=== PATIENT | female | born 1965 | race Hispanic/Latino ===

== ENCOUNTER 2020-01-13 13:51 | Emergency (ER) | payer OTHER ==
[~2020-01-13] VITALS: Ht 157.5 cm; Wt 70.3 kg
--- NOTE | 2020-01-13 14:58 | Diagnostic Imaging Report ---
EXAMINATION: CXR 2 VIEW - HOPD INDICATION: Chest pain COMPARISON: None FINDINGS: LINES/TUBES:None LUNGS:The lungs are well-inflated. No focal consolidation or pulmonary edema. PLEURA:No pleural effusion or pneumothorax. MEDIASTINUM:The cardiomediastinal silhouette appears normal in size and shape. BONES/SOFT TISSUES:No acute osseous injury. ABDOMEN:No free air under the diaphragm. IMPRESSION: No focal pneumonia or pulmonary edema. Signed by: Marissa Benjamin MD on 01/13/2020 2:55 PM
[2020-01-13] MEDS ORDERED: DONNATAL/LIDOCAINE/MAALOX 30 ML SUSP PO ONE (15:15)
[2020-01-13] MEDS ORDERED: FAMOTIDINE 20 MG/2 ML VIAL IV STA (15:15)
--- NOTE | 2020-01-13 15:23 | Emergency Department Note ---
History of Present Illnes History of Present Illness Chief Complaint: Chest Pain History of Present Illness This is a 54 year old female with no significant PMH, who presnet with a 2 week history of progressively worsening pain in center of chest that is worse with swallowing, and results in a "sour taste in her throat." Pt states that 2 weeks ago, she ate something and it "felt like it got stuck in her chest, below the mid sternum. She has had a "sharp and tight" feeling in her chest during this time period, that "lasts for a few seconds" and then resolves, without intervention, with no associated SOB, dizziness, diaphoresis, or palpitations. She has had some nausea, without vomiting, and some anorexia. She has not taken any antacids or other medications to try and help alleviate the pains. She denies melena and hematochezia. Pt denies a personal or FH of heart disease. However, patient does not see a PCP for routine check-ups. Historian: Patient Arrival Mode: Car Head Banquet Waitress Required: No Onset (how long ago): week(s) (2) Location: see HPI Quality: see HPI Radiation: back Severity: moderate Onset quality: sudden Duration (how long): week(s) (intermittent x 2 weeks, lasting a "few seconds" when it occurs) Timing of current episode: sporadic Progression: worsening Chronicity: new Relieving factors: none Exacerbating factors: none Associated symptoms: denies other symptoms Treatments prior to arrival: none Past Medical/Family History Physician Review I have reviewed the patient's past medical and family history. Any updates have been documented here. Past Medical History Recent Fever: No Clinical Suspicion of Infectio: No New/Unexplained Change in Ment: No Past Medical History: None Past Surgical History: Tubal Ligation Social History Smoking Cessation: Never Smoker Counseling Performed: No Alcohol Use: None Any Illegal Drug Use: No TB Exposure/Symptoms: No Physically hurt or threatened: No Family History Family history of heart diseas: No Other Last Tetanus: unk Any Pre-Existing Lines (PICC,: No Is patient up to date on immun: No Review of Systems Review of Systems Constitutional: no symptoms EENTM: no symptoms Cardiovascular: as per HPI, chest pain Respiratory: no symptoms Gastrointestinal: nausea Genitourinary: no symptoms Musculoskeletal: no symptoms Neurological: no symptoms Review of other systems All other systems reviewed and negative. Physical Exam Related Data Allergies: Coded Allergies: No Known Allergies (Unverified , 01/13/20) Vital signs reviewed: Yes Physical Exam CONSTITUTIONAL Constitutional: well-developed, well-nourished HENT HENT: normocephalic, atraumatic, oropharynx clear/moist, nose normal HENT L/R: left ext ear normal, right ext ear normal EYES Eyes: PERRL, conjunctivae normal NECK Neck: ROM normal PULMONARY Pulmonary: effort normal, breath sounds normal CARDIOVASCULAR Cardiovascular: regular rhythm, heart sounds normal, capillary refill normal, normal rate GASTROINTESTINAL Abdominal: soft, bowel sounds normal, tender (mild epigastric ttp, with out reboung or guarding) GENITOURINARY Genitourinary: exam deferred SKIN Skin: warm, dry MUSCULOSKELETAL Musculoskeletal: ROM normal NEUROLOGICAL Neurological: alert, oriented x 3, no gross motor or sensory deficits PSYCHOLOGICAL Results Laboratory Lab results reviewed: Yes Laboratory comments CBC - nl CMP - nl Cardiacs - nl except for myoglobin = 116 BNP - nl D-dimer = negative UA - ket = 40 mg/dl, blo - trace, intact Imaging Imaging results reviewed: Yes Imaging Comments CXR - negative Diagnostics Tests Diagnostic test(s) reviewed: Yes Procedures 12 Lead ECG Interpretation Head Banquet Waitress: Interpreted by ED physician Date: Jan 13, 2020 Time: 13:40 Prior MOLD SPRAYER tracings: not available for review Rhythm: sinus tachycardia Rate: tachycardia BPM: 104 QRS axis: normal ST segments normal: Yes T waves normal: Yes Clinical Impression: abnormal ECG ((due to elevated HR)) Critical Care Time Subsequent provider I assumed direction of critical care for this patient from another provider of my specialty. Clinical Decision Tools HEART Score Date Taken: Jan 13, 2020 Time taken: 15:00 HEART Score: HEART Score Response (Comments) Value History Slightly suspicious 0 EKG Normal 0 Age 45 - 65 1 Risk factors no risk factors 0 Troponin < or = to normal limit Total 1 Assessment & Plan Assessment & Plan Final Impression: (1) CHEST PAIN, UNSPECIFIED (2) GASTRO-ESOPHAGEAL REFLUX DISEASE WITH ESOPHAGITIS (3) NAUSEA Assessment & Plan - Pt received a dose of IV Pepcid and a GI cocktail, both of which seemed to significantly decrease her pain. Take the medication Pantoprazole 40 mg daily x 2 weeks, then try to stop the medication to see if the symptoms return. Follow dietary recommendations below. If you have break-through pain and/or "sour taste in your mouth," you may take MAALOX, GAS-X, GAVISCON, or similar medication to try and reduce pain. Follow a BLAND diet, avoiding FRIED, FATTY, FAST and SPICY foods. *Eat small meals, frequently , rather than 1-2 large meals/day. Do NOT eat closer than 3 hours before bedtime. Establish with a Primary Care Physician and follow-up with a BARREL DRAINER, for a screening colonoscopy and endoscopy (to check out esophagus and stomach) - Pt referred to Dr. Montesinos and Dr. Jose Ramirez Return to the ER, if you develop worsening symptoms of chest pain, nausea, blood in stool, or vomiting, possibly blood. Depart Disposition: HOME, SELF-group home Meds Active Scripts Pantoprazole Sodium* (PROTONIX) 40 Mg Tablet.dr, 40 MG PO DAILY for acid reflux, #30 TAB 0 Refills Prov:JEMMA VERDUZCO MD 01/13/20 Medications in the ED Famotidine 20 mg NOW STAT IV ; Start 01/13/20 at 15:15; Stop 01/13/20 at 15:16; Status UNV Belladonna Alkaloids/ Phenobarbital 30 ml ONCE ONCE PO ; Start 01/13/20 at 15:15; Stop 01/13/20 at 15:16; Status UNV JEMMA VERDUZCO MD Jan 13, 2020 15:23
[2020-01-13] MEDS ORDERED: PANTOPRAZOLE SO40 MG PO (15:25)
[2020-01-13] MEDS ORDERED: MAGNESIUM/ALUMINUM/SIMETHICONE 30 ML UDC ONE (15:33)
[2020-01-13] MEDS ORDERED: BELLADONNA ALK/PHENOBARBITAL 5 ML UDC ONE (15:33)
[2020-01-13] MEDS ORDERED: LIDOCAINE VISC 2% SOLN 15 ML UDC ONE (15:33)
[2020-01-13 17:42] VITALS: BP 138/77
== END 2020-01-13 16:06 | disposition home or self-care (01) ==
LOC: FSED 13:51
DX: R07.9 Chest pain, unspecified (principal); R11.0 Nausea; K21.0 Gastro-esophageal reflux disease with esophagitis
CPT/HCPCS: 71046; 80053; 82553; 83880; 84484; 85025; 85379; 93005; 96374; 99284

== ENCOUNTER 2020-03-21 10:44 | Emergency (ER) | payer OTHER ==
[~2020-03-21] VITALS: Ht 157.5 cm; Wt 70.3 kg
[~2020-03-21 10:44] MED LIST: PANTOPRAZOLE SO40 MG PO
--- NOTE | 2020-03-21 10:50 | NUR ---
called pt for triage, no answer
--- NOTE | 2020-03-21 11:22 | NUR ---
pt called again to triage and refused wanting to stay on phone, pacing.
--- NOTE | 2020-03-21 11:29 | NUR ---
called again and now in bathroom
--- OUTSIDE RECORDS SUMMARY | 2020-03-21 11:38 | XMS REPORT | Continuity of Care Document ---
Author Author [facility] Organization [facility] Address [address] [place] [address] [place] [id number] Phone Unavailable Care Team Providers Care Roll Hand Name Role Phone NO, PCP PCP Unavailable Tomas VERDUZCO Attphys Unavailable Payers Payer Name Policy Type Policy Number Effective Date Expiration Date Kenji Martienz Ppo [id number] [facility] Problems Condition Name Condition Details Condition Category Status Onset Date Resolution Date Last Treatment Date Treating Clinician Comments Source Problem Condition Active [facility] Allergies, Adverse Reactions, Alerts This patient has no known allergies or adverse reactions. Social History Social Habit Start Date Stop Date Quantity Comments Source Sex Assigned At 1965 00:00:00 1965 00:00:00 Female [facility] Medications Ordered Medication Name Filled Medication Name Start Date Stop Da te Current Medication? Ordering Clinician Indication Dosage Frequency Signature (SIG) Comments Components Source Pantoprazole Sodium (Protonix) 40 Mg TABLET. Pantopr azole Sodium (Protonix) 40 Mg TABLET. 2020-01-13 15:25:00 Yes 40 Daily for A cinthya Reflux [facility] Vital Signs Vital Name Observation Time Observation Value Comments Source Body Temperature 2020-01-13 17:42:00 97.4 [degF] [facility] Weight 2020-01-13 13:51:00 155 [lb_av] [facility] BMI (Body Mass Index) 2020-01-13 13:51:00 28.3 kg/m2 [facility] Procedures This patient has no known procedures. Plan of Care Planned Activity Planned Date Details Comments Source Instructions Chest Pain - Noncardiac [facility] Encounters Start Date/Time End Date/Time Encounter Type Admission Type [facility] Care Department Encounter ID Source 2020-01-13 13:51:00 2020-01-13 16:06:00 Departed Emergency Room 1 JEMMA VERDUZCO [facility] [id number] [facility] Results Test Description Test Time Test Comments Results Result Comments Source CXR 2 VIEW - HOPD 2020-01-13 14:55:00 [facility] [address] [address] Patient Name: TITUS MAGDALENO MR #: [id number] : 1965 Age/Sex: 54/F Req #: [id number] Adm Physician: Ordered by: JEMMA VERDUZCO MD Report #: [id number] Location: [facility] Room/Bed: Procedure: [id number] HOPD/CXR 2 VIEW - HOPD Exam Date: 01/13/20 Exam Time: 1452 REPORT STATUS: Signed EXAMINATION: CXR 2 VIEW - HOPD INDICATION: Chest pain COMPARISON: None FINDINGS: LINES/TUBES:None LUNGS:The lungs are well-inflated. No focal consolidation or pulmonary edema. PLEURA:No pleural effusion or pneumothorax. MEDIASTINUM:The cardiomediastinal silhouette appears normal in size and shape. BONES/SOFT TISSUES:No acute osseous injury. ABDOMEN:No free air under the diaphragm. IMPRESSION: No focal pneumonia or pulmonary edema. Signed by: Eliceo Rooney MD on 01/13/2020 2:55 PM Dictated By: ELICEO ROONEY MD [id number] Transcribed By: CHRISTAL OSBORNE on 01/13/20 [id number] COPY TO: JEMMA VERDUZCO MD
[2020-03-21] MEDS ORDERED: VENLAFAXINE HCL50 MG (11:41)
[2020-03-21] MEDS ORDERED: MECLIZINE HCL25 MG (11:41)
[2020-03-21] MEDS ORDERED: ONDANSETRON HCL4 MG (11:41)
[2020-03-21] MEDS ORDERED: HYOSCYAMINE0.125 MG (11:41)
[2020-03-21] MEDS ORDERED: CEFUROXIME250 MG (11:41)
[2020-03-21] MEDS ORDERED: SUCRALFATE1 GM (11:41)
[2020-03-21] MEDS ORDERED: METOCLOPRAMIDE10 MG (11:41)
--- NOTE | 2020-03-21 11:44 | Emergency Department Note ---
History of Present Illnes History of Present Illness Chief Complaint: Abdominal Complaints History of Present Illness This is a 54 year old female Chief Complaint Comment pt with bizzare behavior prior to triage. twice called to triage and on phone and lady with pt and pt wanted pt to finish all paperwork and talking on phone with doctor's office and unk other calls. pt aaox4. ambulatory steady gait. pt states today with bright red rectal bleeding x one. no hx gi bleeds. denies hx of hemorrhoids. pt very very very anxious in triage. . Historian: Patient Arrival Mode: Car Sow Manager Required: No Onset (how long ago): day(s) Location: Rectal Quality: bleeding Radiation: Reports non-radiation Severity: mild Onset quality: sudden Duration (how long): day(s) (1) Timing of current episode: sporadic Progression: unchanged Chronicity: recurrent Relieving factors: none Exacerbating factors: none Past Medical/Family History Physician Review I have reviewed the patient's past medical and family history. Any updates have been documented here. Past Medical History Recent Fever: No Clinical Suspicion of Infectio: No New/Unexplained Change in Ment: No Past Medical History: None Past Surgical History: Tubal Ligation Other Last Tetanus: unk Review of Systems Review of Systems Constitutional: Reports no symptoms EENTM: Reports no symptoms Cardiovascular: Reports no symptoms Respiratory: Reports no symptoms Gastrointestinal: Reports no symptoms, Reports other (Rectal bleeding) Genitourinary: Reports no symptoms Musculoskeletal: Reports no symptoms Integumentary: Reports no symptoms Neurological: Reports no symptoms Psychological: Reports no symptoms Endocrine: Reports no symptoms Hematological/Lymphatic: Reports no symptoms Physical Exam Related Data Allergies: Coded Allergies: No Known Allergies (Unverified , 01/13/20) Triage Vital Signs Vital Signs Date Time Temp Pulse Resp B/P (MAP) Pulse Ox O2 Delivery O2 Flow Rate FiO2 03/21/20 11:34 98.1 90 18 133/79 98 Room Air Physical Exam CONSTITUTIONAL Constitutional: Present well-developed, Present well-nourished HENT HENT: Present normocephalic, Present atraumatic, Present oropharynx clear/moist, Present nose normal HENT L/R: Present left ext ear normal, Present right ext ear normal EYES Eyes: Reports PERRL, Reports conjunctivae normal NECK Neck: Present ROM normal PULMONARY Pulmonary: Present effort normal, Present breath sounds normal CARDIOVASCULAR Cardiovascular: Present regular rhythm, Present heart sounds normal, Present capillary refill normal, Present normal rate GASTROINTESTINAL Abdominal: Present soft, Present nontender, Present bowel sounds normal, Pr esent other (Hemorrhoids) GENITOURINARY Genitourinary: Present exam deferred SKIN Skin: Present warm, Present dry MUSCULOSKELETAL Musculoskeletal: Present ROM normal NEUROLOGICAL Neurological: Present alert, Present oriented x 3, Present no gross motor or sensory deficits PSYCHOLOGICAL Psychological: Present mood/affect normal, Present judgement normal Results Laboratory Lab results reviewed: Yes Imaging Imaging results reviewed: Yes Diagnostics Tests Diagnostic test(s) reviewed: Yes Assessment & Plan Medical Decision Making MDM 54-year-old female presenting for blood on the toilet paper when she wipes. Denies any other symptoms. She has a history of gastritis and is currently being treated for this and had a recent endoscopy which confirmed this. Initial differential includes internal versus external hemorrhoids versus lower GI bleed versus upper GI bleed versus diverticulitis. No significant abdominal tenderness on exam. Examination shows external and internal hemorrhoids without active bleeding. Stool sent for blood which was negative. Work up shows no significant anemia. Diagnosis favors bleeding secondary to hemorrhoids. Doubt emergent process at this time. I discussed results patient as well as expected disease time course and management. They will follow up with their primary care provider or return to the emergency department for new or worsening symptoms. Patient's appropriate for discharge. Part of this note was dictated with Selene and is subject to recognition errors. Reassessment Reassessment time: 13:59 Reassessment Well appearing, NAD Assessment & Plan Final Impression: (1) External hemorrhoid Depart Disposition: HOME, SELF-CARE Last Vital Signs Date Time Temp Pulse Resp B/P (MAP) Pulse Ox O2 Delivery O2 Flow Rate FiO2 03/21/20 11:34 98.1 90 18 133/79 98 Room Air Home Meds Active Scripts Pantoprazole Sodium* (PROTONIX) 40 Mg Tablet., 40 MG PO DAILY for acid reflux, #30 TAB 0 Refills Prov:JEMMA VERDUZCO MD 01/13/20 Reported Medications Ondansetron Hcl (ONDANSETRON HCL) 4 Mg Tablet 03/21/20 Sucralfate (SUCRALFATE) 1 Gm Tablet 03/21/20 Metoclopramide Hcl (METOCLOPRAMIDE HCL) 10 Mg Tablet 03/21/20 Hyoscyamine Sulfate (HYOSCYAMINE SULFATE) 0.125 Mg Tablet 03/21/20 Cefuroxime Axetil (CEFUROXIME) 250 Mg Tablet 03/21/20 Venlafaxine Hcl (VENLAFAXINE HCL) 50 Mg Tablet 03/21/20 Meclizine Hcl (MECLIZINE HCL) 25 Mg Tablet 03/21/20 SLADE MCGRATH MD Mar 21, 2020 11:44
[2020-03-21 12:10] LABS: BASOPHILS % 0.3 % (0.0-1.0); EOSINOPHILS % 0.1 % (0.0-6.0); HEMATOCRIT 38.5 % (34.2-44.1); HEMOGLOBIN 12.8 g/dL (12.0-16.0); LYMPHOCYTES # (AUTO) 1.4 (1.0-3.2); LYMPHOCYTES % 11.7 % (18.0-39.1); MEAN CORPUSCULAR HEMOGLOBIN 28.3 pg (28-32); MEAN CORPUSCULAR HGB CONC 33.2 g/dL (31-35); MONOCYTES # (AUTO) 0.5 (0.2-0.8); MONOCYTES % 4.3 % (4.4-11.3); NEUTROPHILS # (AUTO) 9.9 (2.1-6.9); NEUTROPHILS % 83.2 % (38.7-80.0); PLATELET COUNT 380 x10e3/uL (140-360); RED BLOOD COUNT 4.53 x10e6/uL (3.6-5.1); RED CELL DISTRIBUTION WIDTH 13.7 % (11.7-14.4)
[2020-03-21 12:31] LABS: ALANINE AMINOTRANSFERASE 14 IU/L (0-55); ALBUMIN 4.5 g/dL (3.5-5.0); ALBUMIN/GLOBULIN RATIO 1.4 (0.8-2.0); ALKALINE PHOSPHATASE 69 IU/L (40-150); ANION GAP 12.7 mmol/L (8-16); BLOOD UREA NITROGEN 11 mg/dL (7-26); BUN/CREATININE RATIO 13 (6-25); CALCIUM 9.8 mg/dL (8.4-10.2); CARBON DIOXIDE 25 mmol/L (22-29); CHLORIDE 102 mmol/L (98-107); CREATININE, SERUM 0.83 mg/dL (0.57-1.11); EST GLOMERULAR FILTRATION RATE > 60 ML/MIN (60-); GLUCOSE 110 mg/dL (74-118); POTASSIUM 3.7 mmol/L (3.5-5.1); SODIUM 136 mmol/L (136-145)
[2020-03-21 14:21] LABS: CLARITY,URINE SL CLOUDY (CLEAR); COLOR,URINE YELLOW (YELLOW); LEUKOCYTE ESTERASE ,URINE NEGATIVE (NEGATIVE); NITRITE,URINE NEGATIVE (NEGATIVE); PROTEIN,URINE DIPSTICK NEGATIVE (NEGATIVE)
[2020-03-21 14:22] LABS: BILIRUBIN,URINE NEGATIVE (NEGATIVE); KETONES,URINE 2+ (NEGATIVE); URINE UROBILINOGEN 0.2 mg/dL (0.2 - 1)
[2020-03-21 14:33] LABS: BACTERIA,URINE MODERATE /HPF; EPITHELIAL CELLS,URINE RARE /LPF; MUCUS,URINE MODERATE (RARE); RBC,URINE 0-5 /HPF (0-5)
== END 2020-03-21 14:09 | disposition home or self-care (01) ==
LOC: ER 11:36
DX: K64.4 Residual hemorrhoidal skin tags (principal)
CPT/HCPCS: 36415; 80053; 81001; 82270; 85025; 99284